=== PATIENT | female | born 1965 | race Hispanic/Latino ===

== ENCOUNTER → 2024-02-18 | Day surgery (SDC) | payer BC ==
[~2024-02-18] MED LIST: FENTANYL CITRATE/PF 100MCG/2 ML INJ ONE; HYOSCYAMINE SULFATE 0.5 MG/ML INJ ONE; KETAMINE HCL INJ 50 MG/ML 10 ML VIAL ONE; LABETALOL HCL 5 MG/ML 20ML VIAL ONE; LISINOPRIL5 MG PO; METFORMIN HCL500 MG PO; MIDAZOLAM HCL 2 MG/2 ML VIAL ONE; MONTELUKAST SOD10 MG PO; PANTOPRAZOLE SO40 MG PO; PIOGLITAZONE HC45 MG PO; PREVACID15 M1 PO; PROPOFOL IV EMULSION 50 ML IV ONE; ROSUVASTATIN CA20 MG PO; SYMBICORT 16010.2 GM INH; ZYRTEC10 M3 PO
[2024-02-18] MEDS: LACTATED RINGER'S 1,000 ML ONE (08:53)
[2024-02-18 10:47] VITALS: TEMP 98.5
[2024-02-18] MEDS: ONDANSETRON HCL INJ 2MG/ML 2ML 2 MG/ML VIAL ONE (11:00)
[2024-02-18 11:15] VITALS: BP 113/75; PULSE 80; RESP 16; O2SAT 99
== END | disposition home or self-care (01) ==
LOC: OR 10:30
PROVIDERS: ATTEND Internal Medicine Gastroenterology
DX: K29.70 Gastritis, unspecified, without bleeding (principal); K31.89 Other diseases of stomach and duodenum; K20.90 Esophagitis, unspecified without bleeding; K21.9 Gastro-esophageal reflux disease without esophagitis; K57.30 Diverticulosis of large intestine without perforation or abscess without bleeding; K64.8 Other hemorrhoids; R19.7 Diarrhea, unspecified; Z71.3 Dietary counseling and surveillance; I10 Essential (primary) hypertension; E78.5 Hyperlipidemia, unspecified; J45.909 Unspecified asthma, uncomplicated; E11.9 Type 2 diabetes mellitus without complications; F41.9 Anxiety disorder, unspecified; F32.A Depression, unspecified; Z01.810 Encounter for preprocedural cardiovascular examination; Z79.84 Long term (current) use of oral hypoglycemic drugs; Z79.899 Other long term (current) drug therapy; Z68.36 Body mass index [BMI] 36.0-36.9, adult; Z87.891 Personal history of nicotine dependence
CPT/HCPCS: 43239; 45378; 93005; J1980; J2250; J2405; J2470; J2704; J3010; J3490; J7121